=== PATIENT | male | born 1960 | race Caucasian/White ===

== ENCOUNTER 2022-06-08 09:40 | Emergency (ER) | payer OTHER ==
[~2022-06-08] VITALS: Ht 172.7 cm; Wt 97.0 kg
[~2022-06-08 09:40] MED LIST: NO HOME MEDS
[2022-06-08 09:46] VITALS: BP 143/95
[2022-06-08] MEDS ORDERED: LIDOcaine 1% 30ml preserv. free vial SQ STA (10:52)
[2022-06-08] MEDS ORDERED: HYDROcodone/acetaminophen 5mg/325mg tablet PO ONE (10:55)
[2022-06-08] MEDS ORDERED: amox tr/potassium clavulanate 875/125mg TAB PO ONE (10:55)
[2022-06-08] MEDS ORDERED: HYDR-3965 PO (11:06)
[2022-06-08] MEDS ORDERED: AMOX-117 PO (11:06)
== END 2022-06-08 11:48 | disposition home or self-care (01) ==
LOC: ER 09:40
DX: K04.7 Periapical abscess without sinus (principal); F12.90 Cannabis use, unspecified, uncomplicated; Z72.89 Other problems related to lifestyle; Z79.899 Other long term (current) drug therapy
CPT/HCPCS: 41800; 99284; A6449

== ENCOUNTER 2023-11-06 23:28 | Emergency (ER) | payer MEDICAID ==
[~2023-11-06] VITALS: Ht 175.3 cm; Wt 90.9 kg
[2023-11-06 23:41] VITALS: BP 158/111; PULSE 104; RESP 16; TEMP 97.3; O2SAT 98
== END 2023-11-06 23:56 ==
LOC: ER 23:29
DX: Z02.89 Encounter for other administrative examinations (principal); F12.90 Cannabis use, unspecified, uncomplicated
CPT/HCPCS: 99283

== ENCOUNTER 2024-08-31 21:30 | Emergency (ER) | payer MEDICAID ==
[~2024-08-31] VITALS: Ht 172.7 cm; Wt 58.3 kg
[2024-08-31] MEDS ORDERED: PENI500T2 PO (22:00)
[2024-08-31] MEDS ORDERED: IBUP-1984 PO (22:00)
[2024-08-31] MEDS ORDERED: HYDR-3965 PO (22:00)
[2024-08-31] MEDS: penicillin V potassium 500mg tablet PO ONE (22:24)
[2024-08-31] MEDS: ibuprofen tablet 400 MG TABLET PO ONE (22:24)
[2024-08-31] MEDS: HYDROcodone/acetaminophen 10/325mg tab PO ONE (22:24)
[2024-08-31 22:31] VITALS: BP 143/60; PULSE 99; RESP 20; TEMP 98.6; O2SAT 99
== END 2024-08-31 22:36 | disposition home or self-care (01) ==
LOC: ER 21:31
DX: K08.89 Other specified disorders of teeth and supporting structures (principal); F12.90 Cannabis use, unspecified, uncomplicated; F10.90 Alcohol use, unspecified, uncomplicated; Y90.9 Presence of alcohol in blood, level not specified
CPT/HCPCS: 99284